=== PATIENT | male | born 1980 | race Two or more races ===

== ENCOUNTER 2024-10-27 18:57 | Emergency (ER) | payer OTHER, SELFPAY ==
--- NOTE | ~2024-10-27 | XR_ITS ---
XR chest 1V Ordering provider: Adam Patel MD History: 43 years Male with . AMS . Comparison: None. FINDINGS: MEDIASTINUM: The cardiac silhouette is slightly enlarged. Congestive kezia. LUNGS: No infiltrates, effusions or pneumothorax. Minimal interstitial thickening cannot be excluded. OTHER: No free air under the diaphragm. IMPRESSION: Cardiomegaly with congestive kezia. Minimal interstitial thickening in the lung bases with possibility of pulmonary edema cannot be exclu ded. Clinical correlation advised. Otherwise,No significant abnormality. Reviewed, dictated and finalized at location A. IMPRESSION: Cardiomegaly with congestive kezia. Minimal interstitial thickening in the lung bases with possibility of pulmonary edema cannot be excluded. Clinical correlation advised. Otherwise,No significa nt abnormality.
--- NOTE | ~2024-10-27 | CT_ITS ---
CT brain wo con Ordering provider: Adam Patel MD History: 43 years Male with . AMS . Comparison: None. Technique: CT of the head without contrast. Radiation reduction technique utilized.The dose-length pr oduct was 605.33 mGy-cm. FINDINGS: BRAIN PARENCHYMA AND CSF SPACES: No midline shift, mass effect or hemorrhage. The brain parenchyma a nd CSF spaces are otherwise normal. VISUALIZED PARANASAL SINUSES: Well aerated. MASTOIDS: Well aerated. BONES: The bones appear intact. SOFT TISSUES: Visualized nasopharynx is normal. Superficial soft tissues are normal. IMPRESSION: No acute intracranial findings. Reviewed, dictated and finalized at location A.
[2024-10-27 18:45] VITALS: RESP 16
[2024-10-27 18:48] VITALS: O2SAT 98
[2024-10-27 18:49] VITALS: BP 116/84; PULSE 99; RESP 16; TEMP 36.1; O2SAT 98
[2024-10-27] MEDS: LORazepam INJ (*CRX) 2 MG/ML VIAL (19:01)
[2024-10-27] MEDS: HALOPERIDOL LACTATE 5 MG/ML VIAL (19:01)
--- NOTE | 2024-10-27 19:02 | ECG_ITS ---
Test Date: 2024-10-27 20:09:42 Measurements Intervals [place] Rate: 86 P: 61 MT: 176 QRS: 37 QRSD: 113 T: 34 QT: 378 QTc: 453 Interpretive Statements SINUS RHYTHM INTRAVENTRICULAR CONDUCTION DELAY BORDERLINE ECG No previous ECG available for comparison Electronically Signed On 10-27-2024 20:38:28 CDT by Singh Esquivel D.O.
--- NOTE | 2024-10-27 19:16 | ED_ITS ---
HPI - General Adult General Chief complaint: Alcohol <Adam Patel MD - Last Filed: 10/27/24 20:07> Stated complaint: ETOH+, POSSIBLE DRUG OD, AMS <Adam Patel MD - Last Filed: 10/27/24 20:07> Time Seen by Provider: 10/27/24 19:02 <Adam Patel MD - Last Filed: 10/27/24 20:07> History of Present Illness HPI narrative: This is a 43-year-old male presenting to the ED for possible overdose. Patient was brought in by EMS after family called because he was unresponsive in his room. He had been making comments to his that he was going to take a bunch of pills and end his life. He has access to [employer]. The patient himself is alert but not oriented. He is not answering any questions. Patient is diaphoretic and keeps trying to get out of bed and will not follow redirection. <Adam Patel MD - Last Filed: 10/27/24 20:07> Related Data Allergies/adverse reactions: Allergies Allergy/AdvReac Type Severity Reaction Status Date / Time No Known Allergies Allergy Verified 10/27/24 20:01 <Adam Patel MD - Last Filed: 10/27/24 20:07> [facility] Social History Social History: Social History Substance use type: does not use <Adam Patel MD - Last Filed: 10/27/24 20:07> Exam 2 Narrative: APPEARANCE: Patient is diaphoretic, he is not answering questions, he is looking around the room Head: atraumatic. EYES: EOMI, 3 mm equal and reactive NOSE: Atraumatic NECK: Trachea midline RESPIRATORY: No increased rate of breathing, CTAB CARDIOVASCULAR: RRR, ABDOMINAL: Non-distended MUSCULOSKELETAl: No obvious deformities NEURO: Alert. Moving 4/4 extremities SKIN:: Diaphoretic PSYCHIATRIC: Normal affect <Adam Patel MD - Last Filed: 10/27/24 20:07> Course Course Emergency Course: Patient signed out to me. I had seen the patient when he had initially presented last night. Patient's metabolization of alcohol had not been predictable and his level had still been elevated greater than 90. Repeat draw was performed at 8:00 a.m.. At 10:00 a.m. I did call the lab to see why this had not yet resulted and I was informed that there was an equipment issue and that it would be run now. At this point however, there is every physiological reason to believe that he has metabolized to less than 80. Patient is reassessed at bedside. He is clinically sober at this point and able to answer all questions. He states that he used to have an issue with heavy alcohol use however had had a period of sobriety of 9 months. He notes that previously when he drink heavily he had some complicated withdrawals complicated by tremors and shakiness but without seizures. He believes he had possibly at 1 point used a medication to assist with withdrawal but does not feel like he is currently withdrawing and does not believe he is likely to given the fact that he only just restarted drinking last night. He recognizes that he drank in excess. He does not recall presenting to the emergency department initially and I did tell him the degree of confusion and agitation with which he had initially presented which prompted multiple staff members to get involved given the concern for other possible etiologies/injuries such as head trauma, etc. at this point patient is clinically sober and able to make decisions. He denies any suicidal ideation or homicidal ideation. Drug screen negative. He is calm and appropriate and makes good eye contact. He speaks without slurred speech. He has eaten breakfast without any emesis or issue. Given this, he is declining request of services by crisis team and this is also reasonable although we discussed that he could be provided resources by them. He does have a capacity to make these decisions for himself at this time. I encouraged that he not drink. Advised follow-up in gave referral contact information to a primary care physician. Otherwise stable for discharge at this time. <Laura Storey MD - Last Filed: 10/28/24 10:12> Vital Signs Vital signs: Vital Signs Respiratory Rate 16 10/27/24 18:45 Temperature 97 F L 10/27/24 18:49 Pulse Rate 118 H 10/28/24 07:33 Respiratory Rate 17 10/28/24 07:33 Blood Pressure 131/73 10/28/24 07:33 Pulse Oximetry 96 10/28/24 07:33 Oxygen Delivery Room Air 10/27/24 18:49 <Adam Patel MD - Last Filed: 10/27/24 20:07> Vital Signs Respiratory Rate 16 10/27/24 18:45 Temperature 97 F L 10/27/24 18:49 Pulse Rate 118 H 10/28/24 07:33 Respiratory Rate 17 10/28/24 07:33 Blood Pressure 131/73 10/28/24 07:33 Pulse Oximetry 96 10/28/24 07:33 Oxygen Delivery Room Air 10/27/24 18:49 <Laura Storey MD - Last Filed: 10/28/24 10:12> Medical Decision Making MDM Narrative Medical decision making narrative: -Course: 43-year-old male presenting with altered mental status with suspected drug and alcohol abuse. Patient made suicidal comments to his . Suicide precautions placed. Laboratory studies, CT brain and tox panel had been obtained. Patient was continuously trying to get out of bed and is not responding to verbal redirection. He is given Haldol and Ativan for sedation. Patient signed out to the oncoming physician pending sobriety and re-evaluation. <Adam Patel MD - Last Filed: 10/27/24 20:07> Vital Signs Vital Signs: Vital Signs Respiratory Rate 16 10/27/24 18:45 Temperature 97 F L 10/27/24 18:49 Pulse Rate 118 H 10/28/24 07:33 Respiratory Rate 17 10/28/24 07:33 Blood Pressure 131/73 10/28/24 07:33 Pulse Oximetry 96 10/28/24 07:33 Oxygen Delivery Room Air 10/27/24 18:49 <Adam Patel MD - Last Filed: 10/27/24 20:07> Vital Signs Respiratory Rate 16 10/27/24 18:45 Temperature 97 F L 10/27/24 18:49 Pulse Rate 118 H 10/28/24 07:33 Respiratory Rate 17 10/28/24 07:33 Blood Pressure 131/73 10/28/24 07:33 Pulse Oximetry 96 10/28/24 07:33 Oxygen Delivery Room Air 10/27/24 18:49 <Laura Storey MD - Last Filed: 10/28/24 10:12> Lab Data Result diagrams: 10/27/24 19:22 10/27/24 19:22 <Adam Patel MD - Last Filed: 10/27/24 20:07> Labs: Lab Results 10/27/24 10/27/24 10/27/24 Range/Units 19:22 19:35 22:00 WBC 13.6 H (4.5-10.0) K/mm3 RBC 5.08 (4.6-6.20) M/mm3 Hgb 16.4 (14.0-18.0) g/dL Hct 47.1 (42.0-52.0) % MCV 92.7 (80-100) fl MCH 32.3 (26-34) pg MCHC 34.8 (32-36) g/dl RDW 12.5 (11.5-14.5) % Plt Count 299 (150-375) k/mm3 MPV 9.4 (7.4-10.4) fl Immature Gran % (Auto) 0.3 (0-0.5) % Neut % (Auto) 51.9 (45.5-73.1) % Lymph % (Auto) 40.7 (18.3-44.2) % [place] % (Auto) 6.8 (2.6-8.5) % Eos % (Auto) 0.1 (0-4.4) % Baso % (Auto) 0.2 (0.2-1.2) % Lymph # (Auto) 5.53 H (0.9-3.2) K/mm3 [place] # (Auto) 0.9 H (0.1-0.6) K/mm3 Eos # (Auto) 0.0 (0-0.3) K/mm3 Baso # (Auto) 0.0 (0.0-0.1) K/mm3 Abs Immat Gran (auto) 0.04 H (0.00-0.031) K/mm3 Absolute Neuts (auto) 7.0 H (1.3-6.7) K/mm3 Absolute Nucleated RBC 0.000 (0.0-0.012) K/mm3 Nucleated RBC % 0.0 (0.0-0.2) % PT 14.3 (11.1-14.7) Seconds INR 1.1 APTT 26.5 (22.3-36.8) Seconds Sodium 144 (137-145) mmol/L Potassium 3.9 (3.4-5.0) mmol/L Chloride 110 H (98-107) mmol/L Carbon Dioxide 16 L (22-30) mmol/L Anion Gap 18 H (4-12) mmol/L BUN 14 (9-20) mg/dL Creatinine 0.92 (0.7-1.3) mg/dL Estim Creat Clear Calc 96 ml/min Estimated GFR > 60 (59 - ) Glucose 112 H (65-110) mg/dL Lactic Acid 4.6 H* 3.3 H (0.7-2.0) mmol/L Calcium 9.2 (8.4-10.2) mg/dL Phosphorus 4.0 (2.5-4.5) mg/dL Magnesium 1.9 (1.6-2.3) mg/dL Total Bilirubin 0.3 (0.2-1.3) mg/dL AST 39 (17-59) U/L ALT 26 (6-50) U/L Alkaline Phosphatase 104 (38-126) U/L Total Creatine Kinase 264 H (55-170) U/L Troponin I < 0.012 < 0.012 (0.000-0.034) ng/mL NT-Pro-B Natriuret Pep < 20 (19.9-100) pg/mL Total Protein 8.4 H (6.3-8.2) g/dL Albumin 4.7 (3.5-5.1) g/dL Lipase 99 (23-300) U/L TSH (Reflex) 0.837 (0.465-4.68) uIU/mL Urine Color Yellow (Yellow) Urine Appearance Clear (Clear) Urine pH 5.5 (5.0-9.0) Ur Specific [place] 1.010 (1.001-1.035) Urine Protein Negative (Negative) mg/dL Urine Glucose (UA) Negative (Negative) mg/dL Urine Ketones Trace H (Negative) mg/dL Ur Blood (Man) Negative (Negative) Urine Nitrate Negative (Negative) Urine Bilirubin Negative (Negative) Urine Urobilinogen 0.2 (<2.0) mg/dL Leukocyte Esterase Rfl Negative (Negative) ISAAC/UL Salicylates < 1.0 L (2-20) mg/dL Urine Opiates Screen Negative (Negative) Urine Methadone Screen Negative (Negative) Acetaminophen < 10 L (10-30) ug/mL Ur Barbiturates Screen Negative (Negative) Ur Phencyclidine Scrn Negative (Negative) Ur Amphetamine Screen Negative (Negative) U Benzodiazepines Scrn Negative (Negative) Urine Cocaine Screen Negative (Negative) U Cannabinoids Screen Negative (Negative) Ethyl Alcohol 267 (<10) mg/dL Influenza A (RT-PCR) Negative (Negative) Influenza B (RT-PCR) Negative (Negative) RSV (RT-PCR) Negative (Negative) SARS-CoV-2 RNA (RT-PCR) Negative (Negative) 10/28/24 10/28/24 10/28/24 Range/Units 04:28 06:10 08:01 WBC (4.5-10.0) K/mm3 RBC (4.6-6.20) M/mm3 Hgb (14.0-18.0) g/dL Hct (42.0-52.0) % MCV (80-100) fl MCH (26-34) pg MCHC (32-36) g/dl RDW (11.5-14.5) % Plt Count (150-375) k/mm3 MPV (7.4-10.4) fl Immature Gran % (Auto) (0-0.5) % Neut % (Auto) (45.5-73.1) % Lymph % (Auto) (18.3-44.2) % [place] % (Auto) (2.6-8.5) % Eos % (Auto) (0-4.4) % Baso % (Auto) (0.2-1.2) % Lymph # (Auto) (0.9-3.2) K/mm3 [place] # (Auto) (0.1-0.6) K/mm3 Eos # (Auto) (0-0.3) K/mm3 Baso # (Auto) (0.0-0.1) K/mm3 Abs Immat Gran (auto) (0.00-0.031) K/mm3 Absolute Neuts (auto) (1.3-6.7) K/mm3 Absolute Nucleated RBC (0.0-0.012) K/mm3 Nucleated RBC % (0.0-0.2) % PT (11.1-14.7) Seconds INR APTT (22.3-36.8) Seconds Sodium (137-145) mmol/L Potassium (3.4-5.0) mmol/L Chloride (98-107) mmol/L Carbon Dioxide (22-30) mmol/L Anion Gap (4-12) mmol/L BUN (9-20) mg/dL Creatinine (0.7-1.3) mg/dL Estim Creat Clear Calc ml/min Estimated GFR (59 - ) Glucose (65-110) mg/dL Lactic Acid (0.7-2.0) mmol/L Calcium (8.4-10.2) mg/dL Phosphorus (2.5-4.5) mg/dL Magnesium (1.6-2.3) mg/dL Total Bilirubin (0.2-1.3) mg/dL AST (17-59) U/L ALT (6-50) U/L Alkaline Phosphatase (38-126) U/L Total Creatine Kinase (55-170) U/L Troponin I (0.000-0.034) ng/mL NT-Pro-B Natriuret Pep (19.9-100) pg/mL Total Protein (6.3-8.2) g/dL Albumin (3.5-5.1) g/dL Lipase (23-300) U/L TSH (Reflex) (0.465-4.68) uIU/mL Urine Color (Yellow) Urine Appearance (Clear) Urine pH (5.0-9.0) Ur Specific [place] (1.001-1.035) Urine Protein (Negative) mg/dL Urine Glucose (UA) (Negative) mg/dL Urine Ketones (Negative) mg/dL Ur Blood (Man) (Negative) Urine Nitrate (Negative) Urine Bilirubin (Negative) Urine Urobilinogen (<2.0) mg/dL Leukocyte Esterase Rfl (Negative) ISAAC/UL Salicylates (2-20) mg/dL Urine Opiates Screen (Negative) Urine Methadone Screen (Negative) Acetaminophen (10-30) ug/mL Ur Barbiturates Screen (Negative) Ur Phencyclidine Scrn (Negative) Ur Amphetamine Screen (Negative) U Benzodiazepines Scrn (Negative) Urine Cocaine Screen (Negative) U Cannabinoids Screen (Negative) Ethyl Alcohol 119 94 Pending (<10) mg/dL Influenza A (RT-PCR) (Negative) Influenza B (RT-PCR) (Negative) RSV (RT-PCR) (Negative) SARS-CoV-2 RNA (RT-PCR) (Negative) <Adam Patel MD - Last Filed: 10/27/24 20:07> Lab Results 10/27/24 10/27/24 10/27/24 Range/Units 19:22 19:35 22:00 WBC 13.6 H (4.5-10.0) K/mm3 RBC 5.08 (4.6-6.20) M/mm3 Hgb 16.4 (14.0-18.0) g/dL Hct 47.1 (42.0-52.0) % MCV 92.7 (80-100) fl MCH 32.3 (26-34) pg MCHC 34.8 (32-36) g/dl RDW 12.5 (11.5-14.5) % Plt Count 299 (150-375) k/mm3 MPV 9.4 (7.4-10.4) fl Immature Gran % (Auto) 0.3 (0-0.5) % Neut % (Auto) 51.9 (45.5-73.1) % Lymph % (Auto) 40.7 (18.3-44.2) % [place] % (Auto) 6.8 (2.6-8.5) % Eos % (Auto) 0.1 (0-4.4) % Baso % (Auto) 0.2 (0.2-1.2) % Lymph # (Auto) 5.53 H (0.9-3.2) K/mm3 [place] # (Auto) 0.9 H (0.1-0.6) K/mm3 Eos # (Auto) 0.0 (0-0.3) K/mm3 Baso # (Auto) 0.0 (0.0-0.1) K/mm3 Abs Immat Gran (auto) 0.04 H (0.00-0.031) K/mm3 Absolute Neuts (auto) 7.0 H (1.3-6.7) K/mm3 Absolute Nucleated RBC 0.000 (0.0-0.012) K/mm3 Nucleated RBC % 0.0 (0.0-0.2) % PT 14.3 (11.1-14.7) Seconds INR 1.1 APTT 26.5 (22.3-36.8) Seconds Sodium 144 (137-145) mmol/L Potassium 3.9 (3.4-5.0) mmol/L Chloride 110 H (98-107) mmol/L Carbon Dioxide 16 L (22-30) mmol/L Anion Gap 18 H (4-12) mmol/L BUN 14 (9-20) mg/dL Creatinine 0.92 (0.7-1.3) mg/dL Estim Creat Clear Calc 96 ml/min Estimated GFR > 60 (59 - ) Glucose 112 H (65-110) mg/dL Lactic Acid 4.6 H* 3.3 H (0.7-2.0) mmol/L Calcium 9.2 (8.4-10.2) mg/dL Phosphorus 4.0 (2.5-4.5) mg/dL Magnesium 1.9 (1.6-2.3) mg/dL Total Bilirubin 0.3 (0.2-1.3) mg/dL AST 39 (17-59) U/L ALT 26 (6-50) U/L Alkaline Phosphatase 104 (38-126) U/L Total Creatine Kinase 264 H (55-170) U/L Troponin I < 0.012 < 0.012 (0.000-0.034) ng/mL NT-Pro-B Natriuret Pep < 20 (19.9-100) pg/mL Total Protein 8.4 H (6.3-8.2) g/dL Albumin 4.7 (3.5-5.1) g/dL Lipase 99 (23-300) U/L TSH (Reflex) 0.837 (0.465-4.68) uIU/mL Urine Color Yellow (Yellow) Urine Appearance Clear (Clear) Urine pH 5.5 (5.0-9.0) Ur Specific [place] 1.010 (1.001-1.035) Urine Protein Negative (Negative) mg/dL Urine Glucose (UA) Negative (Negative) mg/dL Urine Ketones Trace H (Negative) mg/dL Ur Blood (Man) Negative (Negative) Urine Nitrate Negative (Negative) Urine Bilirubin Negative (Negative) Urine Urobilinogen 0.2 (<2.0) mg/dL Leukocyte Esterase Rfl Negative (Negative) ISAAC/UL Salicylates < 1.0 L (2-20) mg/dL Urine Opiates Screen Negative (Negative) Urine Methadone Screen Negative (Negative) Acetaminophen < 10 L (10-30) ug/mL Ur Barbiturates Screen Negative (Negative) Ur Phencyclidine Scrn Negative (Negative) Ur Amphetamine Screen Negative (Negative) U Benzodiazepines Scrn Negative (Negative) Urine Cocaine Screen Negative (Negative) U Cannabinoids Screen Negative (Negative) Ethyl Alcohol 267 (<10) mg/dL Influenza A (RT-PCR) Negative (Negative) Influenza B (RT-PCR) Negative (Negative) RSV (RT-PCR) Negative (Negative) SARS-CoV-2 RNA (RT-PCR) Negative (Negative) 10/28/24 10/28/24 10/28/24 Range/Units 04:28 06:10 08:01 WBC (4.5-10.0) K/mm3 RBC (4.6-6.20) M/mm3 Hgb (14.0-18.0) g/dL Hct (42.0-52.0) % MCV (80-100) fl MCH (26-34) pg MCHC (32-36) g/dl RDW (11.5-14.5) % Plt Count (150-375) k/mm3 MPV (7.4-10.4) fl Immature Gran % (Auto) (0-0.5) % Neut % (Auto) (45.5-73.1) % Lymph % (Auto) (18.3-44.2) % [place] % (Auto) (2.6-8.5) % Eos % (Auto) (0-4.4) % Baso % (Auto) (0.2-1.2) % Lymph # (Auto) (0.9-3.2) K/mm3 [place] # (Auto) (0.1-0.6) K/mm3 Eos # (Auto) (0-0.3) K/mm3 Baso # (Auto) (0.0-0.1) K/mm3 Abs Immat Gran (auto) (0.00-0.031) K/mm3 Absolute Neuts (auto) (1.3-6.7) K/mm3 Absolute Nucleated RBC (0.0-0.012) K/mm3 Nucleated RBC % (0.0-0.2) % PT (11.1-14.7) Seconds INR APTT (22.3-36.8) Seconds Sodium (137-145) mmol/L Potassium (3.4-5.0) mmol/L Chloride (98-107) mmol/L Carbon Dioxide (22-30) mmol/L Anion Gap (4-12) mmol/L BUN (9-20) mg/dL Creatinine (0.7-1.3) mg/dL Estim Creat Clear Calc ml/min Estimated GFR (59 - ) Glucose (65-110) mg/dL Lactic Acid (0.7-2.0) mmol/L Calcium (8.4-10.2) mg/dL Phosphorus (2.5-4.5) mg/dL Magnesium (1.6-2.3) mg/dL Total Bilirubin (0.2-1.3) mg/dL AST (17-59) U/L ALT (6-50) U/L Alkaline Phosphatase (38-126) U/L Total Creatine Kinase (55-170) U/L Troponin I (0.000-0.034) ng/mL NT-Pro-B Natriuret Pep (19.9-100) pg/mL Total Protein (6.3-8.2) g/dL Albumin (3.5-5.1) g/dL Lipase (23-300) U/L TSH (Reflex) (0.465-4.68) uIU/mL Urine Color (Yellow) Urine Appearance (Clear) Urine pH (5.0-9.0) Ur Specific [place] (1.001-1.035) Urine Protein (Negative) mg/dL Urine Glucose (UA) (Negative) mg/dL Urine Ketones (Negative) mg/dL Ur Blood (Man) (Negative) Urine Nitrate (Negative) Urine Bilirubin (Negative) Urine Urobilinogen (<2.0) mg/dL Leukocyte Esterase Rfl (Negative) ISAAC/UL Salicylates (2-20) mg/dL Urine Opiates Screen (Negative) Urine Methadone Screen (Negative) Acetaminophen (10-30) ug/mL Ur Barbiturates Screen (Negative) Ur Phencyclidine Scrn (Negative) Ur Amphetamine Screen (Negative) U Benzodiazepines Scrn (Negative) Urine Cocaine Screen (Negative) U Cannabinoids Screen (Negative) Ethyl Alcohol 119 94 Pending (<10) mg/dL Influenza A (RT-PCR) (Negative) Influenza B (RT-PCR) (Negative) RSV (RT-PCR) (Negative) SARS-CoV-2 RNA (RT-PCR) (Negative) <Laura Storey MD - Last Filed: 10/28/24 10:12> ABG Data ABG results: 10/27/24 19:22 VBG pH 7.303 VBG pCO2 35.4 L VBG pO2 55.7 H VBG HCO3 17.1 L O2 Delivery Device Room air O2 Liters/Min Not Reportable FiO2 21 <Adam Patel MD - Last Filed: 10/27/24 20:07> 10/27/24 19:22 VBG pH 7.303 VBG pCO2 35.4 L VBG pO2 55.7 H VBG HCO3 17.1 L O2 Delivery Device Room air O2 Liters/Min Not Reportable FiO2 21 <Laura Storey MD - Last Filed: 10/28/24 10:12> Discharge Plan Discharge Clinical Impression: Alcoholic intoxication <Adam Patel MD - Last Filed: 10/27/24 20:07> Patient Disposition: Home <Adam aPtel MD - Last Filed: 10/27/24 20:07> Condition: Stable <Adam Patel MD - Last Filed: 10/27/24 20:07> Instructions: Antibiotic Form, Alcohol Intoxication (ED) <Adam Patel MD - Last Filed: 10/27/24 20:07> Additional Instructions: As we discussed, It is important to know that when you presented, you were altered to a degree that you could not follow instructions and there were serious concerns about the degree of your confusion/agitation. At this point you are clinically sober and appropriate and able to answer questions appropriately. Recommend not abusing alcohol given that it caused you to have to be a patient in the emergency department. Follow-up with primary care physician. If you do not have 1 the name of doctors listed below. Do not hesitate to return to the emergency department with any new, worsening, or unmanaged symptoms. <Adam Patel MD - Last Filed: 10/27/24 20:07> Patient Language: [place] <Adam Patel MD - Last Filed: 10/27/24 20:07> Follow-up/Referrals: PHYSICIAN,HOME VISITOR [facility] [Primary Care Provider] - Timo Arteaga MD [Physician] - <Adam Patel MD - Last Filed: 10/27/24 20:07> Stand Alone Forms: Work/School Release IP <Adam Patel MD - Last Filed: 10/27/24 20:07> Time of Disposition: 10:07 <Adam Patel MD - Last Filed: 10/27/24 20:07> 10:07 <Laura Storey MD - Last Filed: 10/28/24 10:12> Restraint Face to Face Eval. Evaluation Findings Date/Time of evaluation:: 10/27/24 19:17 <Adam Patel MD - Last Filed: 10/27/24 20:07> Pt's immediate situation:: Patient is altered and trying to get out of bed, he will not respond to verbal redirection patient was given Haldol and Ativan <Adam Patel MD - Last Filed: 10/27/24 20:07> Pt's reaction to intervention:: Patient went to sleep <Adam Patel MD - Last Filed: 10/27/24 20:07> Pt's med/behavioral condition:: Suspected drug and alcohol intoxication <Adam Patel MD - Last Filed: 10/27/24 20:07> Restraint or Seclusion Need Need to continue or terminate:: Will continue to monitor <Adam Patel MD - Last Filed: 10/27/24 20:07>
[2024-10-27] MEDS: LORazepam INJ (*CRX) 2 MG/ML VIAL IM (19:21)
[2024-10-27] MEDS: HALOPERIDOL LACTATE 5 MG/ML VIAL IM (19:21)
[2024-10-27] MEDS: ONDANSETRON INJ 4 MG/2 ML VIAL IV PUSH (19:26)
[2024-10-27 19:31] LABS: Basophils Percent Auto 0.2 % (0.2-1.2); Eosinophils Percent Auto 0.1 % (0-4.4); Hematocrit 47.1 % (42.0-52.0); Hemoglobin 16.4 g/dL (14.0-18.0); Immature Granulocyte Absolute 0.04 K/mm3 (0.00-0.031); Immature Granulocyte Percent A 0.3 % (0-0.5); Lymphocytes Absolute Auto 5.53 K/mm3 (0.9-3.2); Lymphocytes Percent Auto 40.7 % (18.3-44.2); Mean Corpuscular HGB Conc 34.8 g/dl (32-36); Mean Corpuscular Hemoglobin 32.3 pg (26-34); Mean Corpuscular Volume 92.7 fl (80-100); Mean Platelet Volume 9.4 fl (7.4-10.4); Monocytes Absolute Auto 0.9 K/mm3 (0.1-0.6); Monocytes Percent Auto 6.8 % (2.6-8.5); Neutrophils Percent Auto 51.9 % (45.5-73.1); Platelet Count Result 299 k/mm3 (150-375); Red Blood Count 5.08 M/mm3 (4.6-6.20); Red Cell Distribution Width 12.5 % (11.5-14.5); White Blood Count 13.6 K/mm3 (4.5-10.0)
[2024-10-27 19:36] LABS: Fractional Inspired Oxygen 21 %; HCO3 VBG 17.1 mEq/l (24.0-30.0); PCO2 VBG 35.4 mmHg (42.0-48.0); PO2 VBG 55.7 mmHg (35.0-45.0); pH VBG 7.303 (7.300-7.400)
[2024-10-27 19:38] VITALS: BP 103/59; PULSE 98; RESP 16; O2SAT 99
[2024-10-27 19:39] LABS: Device ROOM AIR
[2024-10-27 19:41] LABS: Ethanol 267 mg/dL (<10); Salicylate < 1.0 mg/dL (2-20)
[2024-10-27 19:45] LABS: Creatine Kinase 264 U/L (55-170); Lipase 99 U/L (23-300); Magnesium 1.9 mg/dL (1.6-2.3)
[2024-10-27 19:47] LABS: Alanine Aminotransferase 26 U/L (6-50); Albumin Level 4.7 g/dL (3.5-5.1); Alkaline Phosphatase 104 U/L (38-126); Anion Gap 18 mmol/L (4-12); Aspartate Amino Transferase 39 U/L (17-59); Bilirubin,Total 0.3 mg/dL (0.2-1.3); Blood Urea Nitrogen 14 mg/dL (9-20); Calcium 9.2 mg/dL (8.4-10.2); Carbon Dioxide 16 mmol/L (22-30); Chloride 110 mmol/L (98-107); Estimated CRCL calculation 96 ml/min; Estimated Glomerular Filt Rate > 60; Glucose 112 mg/dL (65-110); Potassium 3.9 mmol/L (3.4-5.0); Sodium 144 mmol/L (137-145); Total Protein 8.4 g/dL (6.3-8.2)
[2024-10-27 19:49] LABS: Acetaminophen < 10 ug/mL (10-30)
[2024-10-27 19:52] LABS: Lactic Acid Reflex 4.6 mmol/L (0.7-2.0)
[2024-10-27 19:55] LABS: NT Pro B Type Natriuretic Pept < 20 pg/mL (19.9-100)
[2024-10-27 19:56] LABS: Troponin I < 0.012 ng/mL (0.000-0.034)
[2024-10-27] MEDS: SODIUM CHLORIDE 0.9% IV 3,000 ML 999 ML (19:59)
[2024-10-27 20:05] LABS: INR 1.1; Partial Thromboplastin Time 26.5 Seconds (22.3-36.8); Prothrombin Time 14.3 Seconds (11.1-14.7)
[2024-10-27] MEDS: SODIUM CHLORIDE 0.9% IV 1,000 ML 999 ML IV CONT ×2 (20:05)
[2024-10-27] MEDS: SODIUM CHLORIDE 0.9% IV 800 ML 999 ML IV CONT (20:06)
[2024-10-27 20:08] LABS: Influenza A QL RT-PCR Negative (Negative); Influenza B QL RT-PCR Negative (Negative); RSV RNA, RT-PCR Negative (Negative); SARS-CoV-2 RNA PCR Negative (Negative)
[2024-10-27 20:19] LABS: Thyroid Stimulating Hormone Reflex 0.837 uIU/mL (0.465-4.68)
[2024-10-27 21:39] LABS: Reflex Lactic Acid Yes or No Add Lactic
--- NOTE | 2024-10-27 22:06 | ECG_ITS ---
Test Date: 2024-10-27 22:49:04 Measurements Intervals [place] Rate: 88 P: 52 ND: 184 QRS: 44 QRSD: 101 T: 52 QT: 364 QTc: 443 Interpretive Statements SINUS RHYTHM NORMAL ECG Compared to ECG 10/27/2024 20:09:42 Intraventricular conduction delay no longer present Electronically Signed On 10-28-2024 07:05:27 CDT by Singh Esquivel D.O.
[2024-10-27 22:09] LABS: Add Urine Microscopic? NO; Appearance Urine Clear (Clear); Bilirubin Urine Negative (Negative); Blood Urine Negative (Negative); Color Urine Yellow (Yellow); Glucose Urine UA Negative (Negative); Ketones Urine Trace mg/dL (Negative); Leukocyte Esterase Ur Negative LEU/UL (Negative); Nitrate Urine Negative (Negative); Protein Urine Negative (Negative); Urobilinogen Urine 0.2 mg/dL (<2.0); pH Urine 5.5 (5.0-9.0)
[2024-10-27 22:15] LABS: Lactic Acid 3.3 mmol/L (0.7-2.0)
[2024-10-27 22:24] LABS: Amphetamine Screen Urine Negative (Negative); Barbiturate Screen Urine Negative (Negative); Benzodiazepines Screen Urine Negative (Negative); Cannabinoid Screen Urine Negative (Negative); Cocaine Screen Urine Negative (Negative); Methadone Screen Urine Negative (Negative); Opiate Screen Urine Negative (Negative); Phencyclidine Screen Urine Negative (Negative)
[2024-10-27 22:32] LABS: Troponin I < 0.012 ng/mL (0.000-0.034)
[2024-10-27] MEDS: ACETAMINOPHEN 500 MG TABLET 1000 MG PO (22:39)
[2024-10-28 04:31] VITALS: BP 109/72; PULSE 87; RESP 16; O2SAT 99
[2024-10-28 04:47] LABS: Ethanol 119 mg/dL (<10)
[2024-10-28 06:29] LABS: Ethanol 94 mg/dL (<10)
[2024-10-28 07:33] VITALS: BP 131/73; PULSE 118; RESP 17; O2SAT 96
[2024-10-28 10:20] VITALS: BP 115/79; PULSE 100; RESP 18; O2SAT 100
[2024-10-28 10:20] LABS: Ethanol 51 mg/dL (<10)
== END 2024-10-28 10:21 | disposition home or self-care (01) ==
PROVIDERS: Emergency Medicine; Emergency Provider Student in an Organized Health Care Education/Training Program
DX: F10.129 Alcohol abuse with intoxication, unspecified (principal); Y90.8 Blood alcohol level of 240 mg/100 ml or more
CPT/HCPCS: 36415; 70450; 71045; 80053; 80143; 80179; 80307; 81003; 82077; 82550; 82803; 83605; 83690; 83735; 83880; 84100; 84443; 84484; 85025; 85610; 85730; 87637; 93005; 96361; 96372; 96374; 99284; A9270; J1630; J2060; J2405; J7030